=== PATIENT | female | born 1975 | race Caucasian/White ===

== ENCOUNTER 2023-12-12 10:31 | Emergency (ER) | payer BC ==
[~2023-12-12] VITALS: Ht 160 cm; Wt 87.8 kg
[2023-12-12] MEDS ORDERED: ASPIRIN 81 MG CHEW ONE (13:29)
[2023-12-12 13:30] LABS: BASOPHILS 0.2 % (0-2); EOSINOPHILS 7.5 % (0-6); HEMATOCRIT 39.6 % (35.0-50.0); HEMOGLOBIN 14.1 g/dL (12.0-18.0); LYMPHOCYTES 31.9 % (24-44); MCH 33.7 (27-36); MCHC 35.6 g/dl (30-36); MCV 94.9 fl (81-99); NEUTROPHILS 53.4 % (39-80); PLATELET COUNT 260 K/uL (140-440); RBC 4.18 M/ul (4.3-5.7)
[2023-12-12] MEDS ORDERED: ASPIRIN 81 MG CHEW PO ONE (13:30)
[2023-12-12 13:48] LABS: ALBUMIN 3.9 g/dL (3.4-5.0); ALBUMIN/GLOBULIN RATIO 1.39 (1.1-2.4); ANION GAP 8.9 (7-21); BILIRUBIN, TOTAL 0.7 ng/dL (0.2-1.0); BUN/CREATININE RATIO 9.41 (6.0-28.6); CALCIUM 8.8 mg/dL (8.5-10.1); CREATININE, SERUM 0.85 mg/dL (0.55-1.02); MAGNESIUM 2.1 mg/dL (1.8-2.4); POTASSIUM 3.9 mmol/L (3.5-5.1); PROTEIN, TOTAL 6.7 g/dL (6.4-8.2)
[2023-12-12 14:54] VITALS: BP 110/73
--- NOTE | 2023-12-13 08:08 | EKG ---
[facility] [address] [facility] [place] [address] Signed Normal sinus rhythm Normal ECG No previous ECGs available Confirmed by Lisa Bello MD () on 12/13/2023 8:08:02 AM Electronically Signed By: LISA BELLO MD 12/13/23 08 PATIENT NAME: ROSAS JARAMILLO Electrocardiogram DATE OF : 75 PHYSICIAN: LISA BELLO MD REPORT #: [id number] REPORT IS CONFIDENTIAL AND NOT TO BE RELEASED WITHOUT AUTHORIZATION
== END 2023-12-12 15:04 | disposition home or self-care (01) ==
LOC: ED 10:31
PROVIDERS: Emergency Medicine
DX: R07.89 Other chest pain (principal); Z91.09 Other allergy status, other than to drugs and biological substances
CPT/HCPCS: 36415; 71045; 80053; 83735; 83880; 84484; 85025; 93005; 93010; 99285-25; A9270

== ENCOUNTER 2024-07-24 09:21 | Emergency (ER) | payer BC ==
[~2024-07-24] VITALS: Ht 160 cm; Wt 89.4 kg
[2024-07-24] MEDS ORDERED: CEPHALEXIN500 M1 PO (09:48)
[2024-07-24 09:55] VITALS: BP 122/78
== END 2024-07-24 09:55 | disposition home or self-care (01) ==
LOC: ED 09:21
DX: L03.312 Cellulitis of back [any part except buttock and flank] (principal); D17.30 Benign lipomatous neoplasm of skin and subcutaneous tissue of unspecified sites; Z91.048 Other nonmedicinal substance allergy status
CPT/HCPCS: 99283